=== PATIENT | male | born 1965 | race Caucasian/White ===

== ENCOUNTER → 2020-04-09 | Outpatient (CLI) | payer OTHER ==
[2020-04-09] VITALS (10 sets, daily range): BP systolic 126–150; BP diastolic 92–107
--- NOTE | 2020-04-09 12:48 | EKG ---
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: : 1965 Requested By: Ben Gregorio Order Number: [id number] José MD: Ted Chu Measurements Intervals [place] Rate: 100 P: CO: QRS: -38 QRSD: 98 T: 16 QT: 395 QTc: 510 Interpretive Statements Atrial fibrillation Left axis deviation Borderline low voltage, extremity leads Consider anterior infarct Prolonged QT interval Baseline wander in lead(s) V3 No previous ECG available for comparison Electronically Signed On 04-09-2020 12:48:14 CDT by Ted Chu [email or web address] <ELECTRONICALLY SIGNED> By: Ted Chu MD, FAC 04/09/20 1248 00 100 Ted Chu MD, [facility] /EPI
--- NOTE | 2020-04-09 13:27 | TEE ---
[place] [address] TRANSESOPHAGEAL ECHOCARDIOGRAM Name: ROMAN CHANG Room: [facility]#: [id number] Admission: 04/09/20 Attend Phys: Ben Gregorio, Discharge: Date of : 69 Date of Service: 04/09/20 1326 Report #: [id number] THIS REPORT FOR: cc: Margaret Elias Tina DO Liston, Michael J. MD [facility] ~ APPROVED REPORT Study performed: 04/09/2020 10:32:01 EXAM: Transesophageal Echocardiogram Patient Location: [facility] BSA: 2.25 HR: 106 bpm BP: 137/92 mmHg Other Information Study Quality: Good Indications Atrial Fibrillation Echo Enhancing Agent Indication: Rule out Shunt Agent(s) / Amount(s) Used: Agitated Saline cc Procedure After obtaining informed consent, patient underwent transesophageal echo in the [employer]. Type of Sedation : Conscious Sedation Sedation was administered by Rhoda Hunt RN. Sedation was achieved intravenously with: Versed (6) Fentanyl (150) Transesophageal probe was inserted and advanced into esophagus without difficulty by Ben Gregorio MD, FAC. Echo enhancement indication: R/O Septal defect. Echo enhancement agent administered: Agitated Saline The SHAKIRA was performed without complications. Throughout the procedure, the blood pressure, pulse oximetry, cardiac rhythm, and rate were monitored. The patient tolerated the procedure without adverse effects. Recovery from conscious sedation was uneventful and [place] [address] TRANSESOPHAGEAL ECHOCARDIOGRAM Name: ROMAN CHANG Room: [facility]#: [id number] Admission: 04/09/20 Attend Phys: Ben Gregorio, Discharge: Date of : 69 Date of Service: 04/09/20 1326 Report #: [id number] Left Ventricle The left ventricle is normal size. There is normal left ventricular wall thickness. The left ventricular systolic function is normal. LVEF is 55-60%. Atria The left atrium size is normal. No thrombus is visualized in the left atrium or appendage. Injection of bubbles documented no interatrial shunt. Aortic Valve The aortic valve is normal in structure. No aortic regurgitation is present. There is no aortic valvular stenosis. Mitral Valve The mitral valve is normal in structure. Trace to mild mitral regurgitation. No evidence of mitral valve stenosis. Tricuspid Valve The tricuspid valve is normal in structure. No evidence of tricuspid regurgitation. Pulmonic Valve Pulmonic valve is grossly normal in structure. No evidence of pulmonic regurgitation. Great Vessels The aortic root is normal in size. <Conclusion> The left ventricle is normal size. There is normal left ventricular wall thickness. The left ventricular systolic function is normal. LVEF is 55-60%. Injection of bubbles documented no interatrial shunt. No thrombus is visualized in the left atrium or appendage. Trace to mild mitral regurgitation. <ELECTRONICALLY SIGNED> By: Ben Gregorio MD, FACC 04/09/20 1326 25 132 Ben Gregorio MD, FACC /INF
== END ==
LOC: M.CL 09:22
PROVIDERS: ATTEND Internal Medicine Cardiovascular Disease
DX: I48.91 Unspecified atrial fibrillation (principal); I10 Essential (primary) hypertension; I49.3 Ventricular premature depolarization; Z79.899 Other long term (current) drug therapy; Z88.8 Allergy status to other drugs, medicaments and biological substances; Z98.890 Other specified postprocedural states

== ENCOUNTER → 2020-05-12 | Outpatient (CLI) | payer OTHER ==
[2020-05-12 09:22] VITALS: BP 119/68
--- NOTE | 2020-05-12 10:10 | EKG ---
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1965 Requested By: Ben Gregorio Order Number: [id number] Reading MD: Mt Gonzalez Measurements Intervals [place] Rate: 72 P: 60 TN: 222 QRS: -30 QRSD: 107 T: 37 QT: 415 QTc: 455 Interpretive Statements Sinus rhythm Prolonged TN interval Left atrial enlargement Left axis deviation Consider anterior infarct Compared to ECG 04/09/2020 10:01:42 Atrial fibrillation no longer present Prolonged QT interval no longer present Myocardial infarct finding still present Electronically Signed On 05-12-2020 10:10:00 [employer] by Mt Gonzalez [email or web address] <ELECTRONICALLY SIGNED> By: Mt Gonzalez MD, FAC 05/12/20 1010 6 Mt Gonzalez MD, [facility] /EPI
--- NOTE | 2020-05-12 11:13 | NUR ---
PATIENT WAS HERE FOR CARDIOVERSION FOR ATRIAL FRIBLILLATION. HOWEVER, WHEN HE WAS HOOKED TO THE VB NET DEVELOPER, HE WAS IN SINUS RHYTHM. SO, WE DID EKG TO CONFORM THAT. HIS EKG ALSO SHOWED SINUS RHYTHM. THEN, WAS INFORMED ABOUT IT. HE CAME TO SEE THE PATIENT AND HE TOLD TO DISCHARGE PATIENT.
== END | disposition home or self-care (01) ==
LOC: M.CL 09:05
PROVIDERS: ATTEND Internal Medicine Cardiovascular Disease
DX: I48.91 Unspecified atrial fibrillation (principal); Z53.8 Procedure and treatment not carried out for other reasons; Z88.8 Allergy status to other drugs, medicaments and biological substances; Z79.01 Long term (current) use of anticoagulants